=== PATIENT | male | born 1955 | race Caucasian/White ===

== ENCOUNTER 2020-07-15 16:04 | Emergency (ER) | payer MEDICAID, MEDICARE, OTHER ==
[2020-07-15] MEDS ORDERED: Sodium Chloride 0.9% 1,000 ML IV ONE (16:25)
--- NOTE | 2020-07-15 16:47 | EDM.PDOC ---
ED HPI GENERAL MEDICAL PROBLEM - General Chief Complaint: Exposure to Heat or Cold Stated Complaint: [facility] Time Seen by Provider: 07/15/20 16:25 Source of Information: Reports: Patient, RN Notes Reviewed History Limitations: Reports: No Limitations - History of Present Illness INITIAL COMMENTS - FREE TEXT/NARRATIVE: Patient is a 65-year-old male who presents to the ED via [facility] for the evaluation of his dehydration and possible heat exhaustion. 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 States they woke up this morning, and started bicycling around 10 AM, they state that he rode about 10 miles on the bicycle, he states he felt nauseous during this, he did try to drink bottles of water during this time, but these bottles of water did not stay down. He states that he feels very thirsty, and he did receive 1 L of IV fluids in the ambulance. Patient states he does have a history of A. fib, and he did have a small amount of this while in the ambulance, but he is not expressing this on the sewage disposal worker at this time. He notes that the police officers, did get a temperature on of 103 F at the time he was feeling worse. Prior to this, he denies any sick symptoms, no fevers or chills, cough or shortness of breath. States he is in fairly good health otherwise. - Related Data Allergies Allergy/AdvReac Type Severity Reaction Status Date / Time Penicillins Allergy Severe Redness Verified 07/15/20 16:22 Past Medical History Cardiovascular History: Reports: Afib, High Cholesterol, Hypertension Endocrine/Metabolic History: Reports: Diabetes, Type II - Infectious Disease History Infectious Disease History: Reports: Chicken Pox - Past Surgical History HEENT Surgical History: Reports: Oral Surgery, Tonsillectomy Social & Family History - Family History Family Medical History: Noncontributory ED ROS GENERAL - Review of Systems Review Of Systems: Comprehensive ROS is negative, except as noted in HPI. ED EXAM, GENERAL - Physical Exam Exam: See Below Exam Limited By: No Limitations General Appearance: Alert, WD/WN, No Apparent Distress Respiratory/Chest: No Respiratory Distress, Lungs Clear, Normal Breath Sounds, No Accessory Muscle Use, Chest Non-Tender Cardiovascular: Normal Peripheral Pulses, Regular Rate, Rhythm, No Murmur Peripheral Pulses: 2+: Radial (L), Radial (R) GI/Abdominal: Normal Bowel Sounds, Soft, Non-Tender, No Distention, No Mass Extremities: Normal Inspection, Normal Capillary Refill Neurological: Alert, Oriented, Normal Cognition, No Motor/Sensory Deficits Psychiatric: Normal Affect, Normal Mood Skin Exam: Warm, Dry, Intact, Normal Color, No Rash EKG INTERPRETATION EKG Date: 07/15/20 Time: 17:09 Rhythm: A-Fib Rate (Beats/Min): 96 Bertrand: RAD-Right Bertrand Deviation P-Wave: Absent QRS: Normal ST-T: Normal QT: Normal Comparison: NA - No Prior EKG EKG Interpretation Comments: Multiple PVCs, patient is in A. fib, but demonstrates no other acute ST abnormalities. Reviewed by myself and Dr. Mittal. Course - Vital Signs Last Recorded V/S: Last Vital Signs Temp 98.7 F 07/15/20 16:15 Pulse 103 H 07/15/20 16:15 Resp 18 07/15/20 16:15 BP 134/90 07/15/20 16:15 Pulse Ox 96 07/15/20 16:15 - Orders/Labs/Meds Orders: Active Orders 24 hr Category Date Time Status EKG Documentation Completion [RC] STAT Care 07/15/20 17:15 Ordered Labs: Laboratory Tests 07/15/20 Range/Units 17:06 Sodium 136 (136-145) mEq/L Potassium 5.2 H (3.5-5.1) mEq/L Chloride 101 (98-107) mEq/L Carbon Dioxide 24 (21-32) mEq/L Anion Gap 16.2 H (5-15) BUN 32 H (7-18) mg/dL Creatinine 2.6 H (0.7-1.3) mg/dL Est Cr Clr Drug Dosing 32.44 mL/min Estimated GFR (MDRD) 25 (>60) mL/min BUN/Creatinine Ratio 12.3 L (14-18) Glucose 280 H (80-115) mg/dL Calcium 9.4 (8.5-10.1) mg/dL Total Bilirubin 1.1 H (0.2-1.0) mg/dL AST 23 (15-37) U/L ALT 47 (16-63) U/L Alkaline Phosphatase 54 (46-116) U/L Total Protein 7.8 (6.4-8.2) g/dl Albumin 4.4 (3.4-5.0) g/dl Globulin 3.4 gm/dL Albumin/Globulin Ratio 1.3 (1-2) Meds: Medications Discontinued Medications Generic Name Dose Route Start Last Admin Trade Name Chesetr PRN Reason Stop Dose Admin Sodium Chloride 1,000 mls @ 999 mls/hr 07/15/20 16:25 07/15/20 16:55 Normal Saline IV 07/15/20 17:25 999 mls/hr ONETIME ONE Administration - Re-Assessments/Exams Free Text/Narrative Re-Assessment/Exam: 07/15/20 16:46 Patient presents to the ED for his dehydration. He already got 1 L of fluids in the ambulance, and he will get 1 more here, along with a metabolic panel at this time. 07/15/20 17:52 The patient did get a list of medications from his , he is on metoprolol and Eliquis, glimepiride, Ozempic, metformin and rosuvastatin. His metabolic panel demonstrates a mildly elevated potassium level at 5.2, or high upper limit of normal is 5.1. Creatinine is elevated at 2.6 and GFR is decreased at 25. Again I do believe this is due to severe dehydration. We will try to await him to urinate, to make sure that he is still passing urine, he has been drinking fluids as well. 07/15/20 18:30 The patient was able to urinate and does wish to go home at this time. This is fine with me at this time. I will have him continue oral fluids at home, and try to rest tonight. Departure - Departure Time of Disposition: 18:32 Disposition: Home, Self-Care 01 Condition: Good Clinical Impression: Dehydration Heat exhaustion Qualifiers: Encounter type: initial encounter Qualified Code(s): T67.5XXA - Heat exhaustion, unspecified, initial encounter - Discharge Information *PRESCRIPTION DRUG MONITORING PROGRAM REVIEWED*: No *COPY OF PRESCRIPTION DRUG MONITORING REPORT IN PATIENT FAISAL: No Instructions: Heat Exhaustion, Dehydration, Adult, [id number] Referrals: PCP,None [Primary Care Provider] - Forms: ED Department Discharge Additional Instructions: You were evaluated in the ER today regarding your dehydration and heat exhaustion. You were given 1 bag of IV fluids in the ambulance, and another bag of IV fluids in the ER, this seemed to relieve your symptoms fairly well. You were also able to tolerate oral fluids. Please go home tonight, and continue to increase your oral fluid hydration, and try to get a little bit of rest. I would try to stay away from strenuous activity, for the next day or so if possible if it is going to be extremely warm out like it was today. Please return to the ER at any time if your symptoms change or worsen. Sepsis Event Note (ED) - Evaluation Sepsis Screening Result: No Definite Risk - Focused Exam Vital Signs: Vital Signs Temp Pulse Resp BP Pulse Ox 07/15/20 16:15 98.7 F 103 H 18 134/90 96 - My Orders Last 24 Hours: My Active Orders 07/15/20 17:15 EKG Documentation Completion [RC] STAT - Assessment/Plan Last 24 Hours: My Active Orders 07/15/20 17:15 EKG Documentation Completion [RC] STAT
== END 2020-07-15 19:42 | disposition home or self-care (01) ==
LOC: JD.ED 16:04
DX: T67.5XXA Heat exhaustion, unspecified, initial encounter (principal); E11.9 Type 2 diabetes mellitus without complications; E78.00 Pure hypercholesterolemia, unspecified; I48.91 Unspecified atrial fibrillation; I10 Essential (primary) hypertension; Z88.0 Allergy status to penicillin; Z90.89 Acquired absence of other organs
CPT/HCPCS: 36415; 80053; 93005; 96360; 99284; J7030; 93010; 99283